=== PATIENT | female | born 1960 | race Caucasian/White ===

== ENCOUNTER 2017-01-06 21:07 | Emergency (ER) | payer OTHER ==
[~2017-01-06] VITALS: Ht 167.6 cm; Wt 70.5 kg
[2017-01-06 21:10] VITALS: Ht 167.6 cm; Wt 70.5 kg
--- NOTE | 2017-01-06 21:47 | ERD ---
ER Documentation Chief Complaint Date/Time DATE: 01/06/17 TIME: 21:37 Chief Complaint PT dx with UTI yesterday, taking Levaquin and Ibuprofen for HAMMER HPI 56-year-old female who presented emergency room for frontal and occipital headache that started at around 6 PM today. Patient stated that she never had this headache before. She is taking Levaquin for her UTI that was diagnosed yesterday. She also take ibuprofen for her headache today. Denies head trauma, loss of consciousness, dizziness, blurry vision, changes in vision, photophobia, facial pain, ear pain, throat pain, difficulty swallowing, neck pain, shoulder pain, chest pain, cough, hemoptysis, abdominal pain, back pain, loss of appetite, nausea, vomiting, hematochezia, diarrhea, constipation, urinary symptoms, , the possibility of being , bladder and bowel incontinences, extremity weakness, extremity tenderness, numbness or tingling sensation, difficulty walking, recent travel, recent exposure to illness, recent antibiotic use in the last 3 months, fever, chills. Allergy: No known drug allergies. PMH: Hyperlipidemia. Family medical history: Denies. [id number] with 3 miscarriages. LMP: "3 years ago." Medications: Ibuprofen. Surgery: Tubal ligation. Primary Social History: Not working at this time. Smokes about 3-4 sticks of cigarettes a day. Denies use of alcohol, use of illegal drugs. ROS All systems reviewed and are negative except as per history of present illness. PMhx/Soc Medical and Surgical Hx: pt denies Surgical Hx History of Surgery: No Anesthesia Reaction: No Hx Neurological Disorder: No Hx Respiratory Disorders: No Hx Cardiac Disorders: No Hx Psychiatric Problems: No Hx Miscellaneous Medical Probl: Yes (INSOMNIA; ANXIETY) Hx Alcohol Use: No Hx Substance Use: No Hx Tobacco Use: No Smoking Status: Never smoker Physical Exam Vitals Vital Signs Date Time Temp Pulse Resp B/P Pulse Ox O2 Delivery O2 Flow Rate FiO2 01/06/17 21:10 97.9 73 18 130/68 97 Physical Exam CONSTITUTIONAL: Well-appearing; well-nourished; in no apparent distress. HEAD: Normocephalic; atraumatic. EYES: Conjunctiva clear, sclera non-icteric, EOM intact. PERRLA. No pain on eye movement. Extraocular movement of her eyes is within normal limits. Ears: Hearing intact. EACs clear, TMs non-bulging, non-inflamed, translucent & mobile, ossicles normal appearance, No obstructions, no erythema, no discharges Nose: No obstructions. No polyps. No external lesions. Mucosa non-inflamed. No external lesions, septum and turbinates normal. No rhinorrhea. No discharges. Frontal sinus is non-tender to palpation. Maxillary sinus is non-tender to palpation. MOUTH: Moist mucous membranes, no lesion, no obstructions, no vesicles, no thrush, patent airway Throat: Uvula in midline. Right tonsil is +1 with no erythema, no exudate. Left tonsil is +1 with no erythema, no exudate. Tolerating secretions well. Good gag reflex. Patent airway. Neck: Supple, without lesions, bruits, or adenopathy. No mass. Thyroid non- enlarged and non-tender to palpation. Full and good range of motion of the neck without pain and tenderness. No nuchal rigidity. CHEST: Symmetrical chest. Respirations even and not labored. No retractions noted. CARDIOVASCULAR: Normal S1, S2. RRR. No murmurs, gallops. RESPIRATORY: Normal chest excursion with respiration; breath sounds clear and equal bilaterally; no wheezes, rhonchi, or rales. Breathing even and unlabored. Speaking in clear, full, and complete sentences w/ ease. ABDOMEN: Normal bowel sounds normal. Soft, round, non-distended, non-guarding, no tenderness, no rebound, no organomegaly, no masses, no pulsating abdominal mass. No hernia. No peritoneal signs. : No CVA tenderness. BACK: Symmetrical shoulder. Spine is midline without deformity, tenderness. No evidence of trauma or deformity. PELVIS: Stable pelvis. No evidence of trauma or deformity. MUSCULOSKELETAL: Normal gait and station. No misalignment, asymmetry, crepitation, defects, tenderness, masses, effusions, decreased range of motion, instability, atrophy or abnormal strength or tone in the head, neck, spine, ribs , pelvis or extremities. No calf tenderness. NEUROVASCULAR: Distal pulses are present. Pedal pulse are present, equal, and normal. Capillary refills are < 2 seconds. NEUROLOGIC: Alert and oriented x4. Speaks full and clear sentences. Cranial Nerves II-XII normal. Sensation to pain, touch, and proprioception normal. Grossly unremarkable. No neurologic deficits. Romberg test is negative. PSYCHOLOGICAL: The patients mood and manner are appropriate. No hallucinations , delusions. Not SI. Not HI. Has the capacity to decide for self SKIN: Normal for age and ethnicity; warm; dry; good turgor; no apparent lesions or exudates. No rashes, hives, discoloration. Intact. Procedures/MDM Examination: Please see physical examination. Disease process, medical treatment was explained to the patient and family member. They verbalized understanding and agreed with the diagnostic tests, medical treatment, and follow-up care. EKG: Normal sinus rhythm with a ventricular rate of 65 bpm. No evidence of acute myocardial infarction. Radiology: CT of the brain without IV contrast Impression: No intracranial hemorrhage or acute intracranial abnormality. Treatment: None. Re-evaluation: Denies headache, blurry vision, dizziness, neck pain, chest pain , shoulder pain, back pain, abdominal pain. No nausea and vomiting. No episode of emesis here to emergency department. No neurovascular deficits. No neurological deficit. Romberg test is negative. Ambulatory with steady gait. Stated that she feels much better at this time. Consultation: Differential diagnosis: Subarachnoid hemorrhage versus stroke versus meningitis versus sinus headache Medical decision makin-year-old female who presented emergency room for frontal and occipital headache that started at around 6 PM today. Patient stated that she never had this headache before. She is taking Levaquin for her UTI that was diagnosed yesterday. She also take ibuprofen for her headache today. Patient's complaint, patient's history about her complaint, my physical findings, diagnostic test results are consistent with my final diagnosis of sinus headache. Medications prescribed are the following: Continue her Levaquin. Patient and family member are made aware of the side effects and adverse reactions of the medications prescribed. Instructed on when to seek emergent and medical attention in case allergic/anaphylactic reactions or severe side effects and or adverse reactions to medications. Patient and family member verbalized understanding. Patient instructed Instructed to follow-up with his PCP in 24-48 hours. Community resources also provided. Stated that she will see a primary care provider next 24-48 hours. Instructed to Call 911 for chest pain, shortness of breath. Advised to come back here in ED as soon as possible for severity of symptoms which includes but not limited to: any new symptoms; shortness of breath/difficulty of breathing; cardiovascular changes; severe gastrointestinal symptoms; signs and symptoms of bleeding and or infection; signs of compartment syndrome/neurovascular changes; neurological changes/deficits. Patient and family member verbalized understanding. Upon discharge, patient is alert and oriented x 4, speaks full and clear sentences, denies pain, has no neurological deficits, has no neurovascular deficits, difficulty of breathing. Breathing even and unlabored. Lung sounds are clear to auscultation. Not in distress. Appears comfortable. Ambulatory with steady gait. Appears satisfied with care provided here in ED. Departure Diagnosis: Primary Impression: Headache Additional Impression: Sinus headache Condition: Stable Additional Instructions: Patient instructed Instructed to follow-up with his PCP in 24-48 hours. Community resources also provided. Stated that she will see a primary care provider next 24-48 hours. Instructed to Call 911 for chest pain, shortness of breath. Advised to come back here in ED as soon as possible for severity of symptoms which includes but not limited to: any new symptoms; shortness of breath/difficulty of breathing; cardiovascular changes; severe gastrointestinal symptoms; signs and symptoms of bleeding and or infection; signs of compartment syndrome/neurovascular changes; neurological changes/deficits. Patient and family member verbalized understanding. SANTANA GIBSON Jan 06, 2017 21:47
--- NOTE | 2017-01-06 23:04 | RADRPT ---
PROCEDURE: CT Brain without contrast. CLINICAL INDICATION: Severe headaches TECHNIQUE: A multiplanar CT of the brain was performed on a CT scanner utilizing axial imaging fro m the skull base through the vertex without IV contrast. The CTDIvol is 23.68 mGy and the DLP is 72 0.23 mGycm. One or more of the following dose reduction techniques were utilized: Automated exposu re control, adjustment of the mA and/or kV according to patient size, use of iterative reconstructio n technique. COMPARISON: None FINDINGS: No evidence of intracranial hemorrhage or abnormal extra-axial fluid collection. The brain parenchyma is normal attenuation morphology with preservation of blanc white differentiatio n and age appropriate size of the ventricles and subarachnoid spaces. Lobulated mucosal thickening left maxillary compatible with chronic inflammatory change. The basal cisterns, posterior fossa contents, brainstem, craniocervical junction, orbits, pituitary axis, paranasal sinuses, mastoid air cells, and calvarium are unremarkable. IMPRESSION: 1. No intracranial hemorrhage or acute intracranial abnormality. RPTAT:AAJJ Physician Javy Date Time Electronically viewed and signed by Physician Javy on 01/06/2017 23:04 RAISA/
[2017-01-07 00:31] VITALS: BP 134/76; PULSE 70; RESP 18; TEMP 98.6
== END 2017-01-07 00:32 | disposition home or self-care (01) ==
LOC: FTE 21:07
DX: R51 Headache (principal); F17.210 Nicotine dependence, cigarettes, uncomplicated
CPT/HCPCS: 70450; 93005